=== PATIENT | female | born 1945 | race Caucasian/White ===

== ENCOUNTER → 2021-02-05 11:07 | Outpatient (BNVA) | payer MEDICARE, OTHER, SELFPAY | PROVIDERS: PCP Neuromusculoskeletal Medicine & OMM; Referring Provider Neuromusculoskeletal Medicine & OMM; Visit Provider Internal Medicine Cardiovascular Disease | DX: R00.2 Palpitations (principal); I10 Essential (primary) hypertension | CPT/HCPCS: 99203 ==

== ENCOUNTER 2022-02-03 08:08 | Outpatient (CLI) | payer MEDICARE, OTHER, SELFPAY ==
--- NOTE | 2022-02-03 08:00 | RT.EKG_ITS ---
APPROVED REPORT Exam: Resting ECG Reason for Exam: palpitations Patient Location: O HR:61 bpm ECG Measurements Heart Rate 61 AXIS DC 118 P -12 QRSd 82 QRS 43 QT 408 T 26 QTc 411 Conclusion Sinus rhythm...normal P axis, V-rate 50- 99 Normal Electrocardiogram
== END 2022-02-03 08:09 | disposition home or self-care (01) ==
LOC: DI.CARD 08:08
PROVIDERS: PCP Neuromusculoskeletal Medicine & OMM; Visit Provider Internal Medicine Cardiovascular Disease
DX: R00.2 Palpitations (principal); I48.0 Paroxysmal atrial fibrillation
CPT/HCPCS: 93010

== ENCOUNTER → 2022-02-03 10:48 | Outpatient (BNVA) | payer MEDICARE, OTHER, SELFPAY | PROVIDERS: PCP Neuromusculoskeletal Medicine & OMM; Referring Provider Neuromusculoskeletal Medicine & OMM; Visit Provider Internal Medicine Cardiovascular Disease | DX: R00.2 Palpitations (principal); I48.0 Paroxysmal atrial fibrillation; I10 Essential (primary) hypertension | CPT/HCPCS: 93005; 99213 ==

== ENCOUNTER → 2023-02-02 10:47 | Outpatient (BNVA) | payer MEDICARE, SELFPAY | PROVIDERS: PCP Neuromusculoskeletal Medicine & OMM; Visit Provider Internal Medicine Cardiovascular Disease | DX: R00.2 Palpitations (principal); I10 Essential (primary) hypertension | CPT/HCPCS: 99213 ==

== ENCOUNTER 2023-11-10 08:19 | Outpatient (CLI) | payer MEDICARE, SELFPAY ==
--- NOTE | 2023-11-10 08:15 | RT.EKG_ITS ---
APPROVED REPORT Exam: Resting ECG Reason for Exam: palpitations Patient Location: O HR:61 bpm ECG Measurements Heart Rate 61 AXIS DE 138 P 28 QRSd 89 QRS 27 QT 398 T 24 QTc 401 Conclusion Sinus rhythm...normal P axis, V-rate 50- 99 Probable left atrial enlargement...P >50mS, <-0.10mV V1 Low voltage
== END 2023-11-10 08:20 | disposition home or self-care (01) ==
LOC: DI.CARD 08:20
PROVIDERS: PCP Neuromusculoskeletal Medicine & OMM; Visit Provider Internal Medicine Cardiovascular Disease
DX: R00.2 Palpitations (principal); I51.7 Cardiomegaly; I10 Essential (primary) hypertension
CPT/HCPCS: 93010

== ENCOUNTER → 2023-11-10 08:50 | Outpatient (BNVA) | payer MEDICARE, SELFPAY | PROVIDERS: Visit Provider Internal Medicine Cardiovascular Disease | DX: I10 Essential (primary) hypertension (principal); R00.2 Palpitations | CPT/HCPCS: 93005; 99213 ==

== ENCOUNTER 2023-11-11 15:50 | Outpatient (REF) | payer MEDICARE, SELFPAY ==
--- NOTE | 2023-11-11 15:27 | ENDOMET_PTH ---
PATIENT: Ivy Edouard LOC: [facility] U#:[id number] AGE/SX: 78/F ROOM: RE11/11/[address]: Myriam Craven MD : [id number] BED: DIS: 11/11/2023 SPEC #: [id number] RECD: 11/11/23 17:41 STATUS: PRINCESS REQ #: [id number] [place]: 11/11/23 15:[address]: Myriam Craven DEPT: Surgical Specimen RECD BY: Naheed Samaniego ENTERED: 11/11/23 17:41 SP TYPE: Endomet OTHR DR: Unknown,Unknown Tissues: 1 - ENDOMETRIUM BX/CURRETTE Procedures: GROSS AND MICRO LEVEL 4 Comments: [id number]
== END 2023-11-11 15:51 | disposition home or self-care (01) ==
LOC: LBN 15:50
PROVIDERS: Visit Provider Obstetrics & Gynecology
DX: R93.89 Abnormal findings on diagnostic imaging of other specified body structures (principal)
CPT/HCPCS: 88305

== ENCOUNTER → 2024-02-22 13:28 | Outpatient (BNVA) | payer MEDICARE, SELFPAY | PROVIDERS: PCP Family Medicine; Visit Provider Internal Medicine Cardiovascular Disease | DX: R00.2 Palpitations (principal); I10 Essential (primary) hypertension | CPT/HCPCS: 99213 ==

== ENCOUNTER → 2024-08-22 13:27 | Outpatient (BNVA) | payer MEDICARE, OTHER, SELFPAY | PROVIDERS: PCP Family Medicine; Referring Provider Family Medicine; Visit Provider Registered Nurse | DX: R00.2 Palpitations (principal); I10 Essential (primary) hypertension | CPT/HCPCS: 99214 ==

== ENCOUNTER → 2025-02-20 13:31 | Outpatient (BNVA) | payer MEDICARE, OTHER, SELFPAY | PROVIDERS: PCP Family Medicine; Referring Provider Family Medicine; Visit Provider Registered Nurse | DX: R00.2 Palpitations (principal); I10 Essential (primary) hypertension | CPT/HCPCS: 99214 ==

== ENCOUNTER → 2025-02-27 02:30 | Outpatient (CLI) | payer MEDICARE, SELFPAY ==
--- NOTE | 2025-02-27 14:30 | DI.US_ITS ---
APPROVED REPORT EXAM: Comprehensive 2D, Doppler, and color-flow Echocardiogram Patient Location: Out-Patient Captain'S Assistant: Linda Bang RDCS (AE) Indications: Palpitations, Mitral regurgitation, Dyspnea on exertion Other Information Study Quality: Good Conclusion Normal left ventricular wall thickness and chamber size. Ejection fraction is 60 to 65%. Wall motion is normal Normal right ventricular size and function Both atria are normal in size Mild mitral annular calcification. Mild mitral regurgitation Normal estimated right ventricular systolic pressure 28 mmHg Wall motion Left Ventricle The left ventricle is normal size. The left ventricular systolic function is normal. The left ventricular ejection fraction is within the normal range. There is normal left ventricular wall thickness. There is normal LV segmental wall motion. There is no ventricular septal defect visualized. LVEF is 60-65%. Right Ventricle The right ventricle is normal size. The right ventricular systolic function is normal. Atria The left atrium size is normal. The right atrium size is normal. The interatrial septum is intact with no evidence for an atrial septal defect. Aortic Valve The aortic valve is normal in structure. Aortic valve is trileaflet. There is no aortic valvular stenosis. No aortic regurgitation is present. Mitral Valve Mild mitral annular calcification. No evidence of mitral valve stenosis. Mild mitral regurgitation. Tricuspid Valve The tricuspid valve is normal in structure. There is no tricuspid valve stenosis. Trace tricuspid regurgitation. The RVSP is 27.6 mmHg. Pulmonic Valve The pulmonary valve is normal in structure. There is no pulmonic valvular stenosis. Trace pulmonic regurgitation. Great Vessels The aortic root is normal in size. The ascending aorta is normal in size. Aortic arch is not well visualized. IVC is normal in size and collapses >50% with inspiration. Pericardium There is no pericardial effusion. 2D Dimensions IVSD d PLAX 0.90 cm F: 0.6-1.0 Ao Root d 2.40 cm F: 2.7 - 3.3 LVPW d PLAX 0.90 cm F: 0.6 - 1.0 Ao Asc Diam d 2.52 cm F: 2.3 - 3.1 LVID d PLAX 4.42 cm F: 3.8 - 5.2 Left Atrium 0.00 cm F: 2.7 - 3.8 LVDs 3.02 cm F: 2.2 - 3.5 LV EF Teichholz 59.9 % FS 31.72 % LV EDV (Teich) 88.4 mL LV ESV (Teich) 35.4 mL M-Mode TAPSE 2.03 cm (M/F) >1.7 Auto EF LV EDV A4C 55.8 mL LV EDV A2C 64.4 mL LV EDV BP 60.3 mL LV ESV A4C 19.7 mL LV ESV A2C 22.6 mL LV ESV BP 20.7 mL LVEF(%) A4C 64.7 % LVEF(%) A2C 65.0 % LVEF(%) BP 65.6 % LV SV A4C 36.1 ml LV SV A2C 41.9 ml LV SV BP 39.6 ml LV CO A4C 2.4 L/min LV CO A2C 2.7 L/min LV CO BP 2.6 L/min HR A4C 67.64 BPM HR A2C 63.92 BPM LV EDV Index (BP) LA Volume LA Length A4C 5.5 cm LA Length A2C 6.0 cm LA Area A4C s 18.09 cm2 LA Area A2C s 19.18 cm2 LA Vol A4C A-L 50.63 mL LA Vol A2C A-L 51.87 mL LA Vol Biplane A-L 53.7 mL LA Vol/BSA A4C A-L LA Vol/BSA A2C A-L LA Vol/BSA BP A-L 34.9 mL/m2 LA Vol A4C MOD 47.3 mL LA Vol A2C MOD 47.8 mL LA Vol BP MOD 49.7 mL RA Volume RA Area A4C 14.1 cm2 RA ESV A4C (A-L) 38.7mL RA Vol/BSA A4C A-L RA Length A4C 4.4 cm RA ESV A4C (MOD) 36.3mL LV Diastology MV E' medial 0.072 (>0.07 m/s) MV E Vmax 1.07 (0.4-1.3 m/s) MV E/E' MED 14.83 (<14) MV A Vmax 0.90 (0.4-1.3 m/s) MV E' lateral 0.082 (>0.1 m/s) E/A Ratio 1.2 MV E/E' LAT 13.05 (<14) MV E' Average 0.077 m/s MV E/E'(average) 13.88 Aortic Valve AoV Vmax 1.59 m/s LVOT Vmax 1.41 m/s AoV Peak Grad 10.1 mmHg LVOT Peak Grad 8.0 mmHg AoV Area (Vmax) 2.51 cm2 LVOT VTI 0.350 m AoV VTI 0.387 m LVOT Mean Grad 4.6 mmHg AoV Mean Everardo. 1.07 m/s LVOT SV 99.01 mL AoV Mean Grad 5.3 mmHg LVOT Diam s 1.85 cm AoV Area (VTI) 2.56 cm2 AV Regurg Peak Gr. 10.12 mmHg Velocity Ratio 0.89 Mitral Valve MV DT 256 (160-240 msec) MV Vmax TIPS 1.30 m/s MV Mean Grad 2.3 (<2mmHg) MV VTI 0.397 m Pulmonary Valve PV Vmax 0.68 (0.5-1.5 m/s) RVOT Vmax 0.63 m/s PV Peak Grad 1.9 mmHg RVOT Peak Gr. 1.6 mmHg PV Mean Everardo 0.52 m/s RVOT VTI 0.159 m PV Mean Grad 1.2 mmHg RVOT Mean Gr. 1.1 mmHg Tricuspid Valve RA Pressure 3.00 mmHg TR Vmax 2.48 m/s TV S' 0.14 m/s TR Peak Grad 24.5 mmHg RVSP (TR) 27.6 mmHg
== END ==
PROVIDERS: PCP Family Medicine; Visit Provider Registered Nurse
DX: R00.2 Palpitations (principal)
CPT/HCPCS: 93306

== ENCOUNTER 2025-03-02 10:31 | Outpatient (CLI) | payer MEDICARE, SELFPAY | END 2025-03-02 10:32 | disposition home or self-care (01) | PROVIDERS: PCP Family Medicine; Visit Provider Registered Nurse | DX: R00.2 Palpitations (principal) | CPT/HCPCS: 93270 ==

== ENCOUNTER 2025-04-06 08:30 | Outpatient (CLI) | payer MEDICARE, SELFPAY ==
--- NOTE | 2025-04-06 09:19 | W.CARDEVENT ---
Date of service: 04/06/25 Time of Service: 09:19 Cardiac Event Recorder Referring Provider:: Ivanna Raza Indications:: Palpitations Cardiac Event Note: This is a cardiac event monitor. Patient was monitored for 30 days Rhythm throughout was sinus. Average heart rate was 67. Minimum was 56, maximum 150 There were rare ventricular ectopic beats. There was 1 run of nonsustained ventricular tachycardia, 7 beats in duration, during sleep. Atrial premature beats were rare. There were very rare self-limited atrial runs. Some of these were symptomatic There was no atrial fibrillation, no high-grade AV block, no pauses greater than 3 seconds
== END 2025-04-06 08:31 | disposition home or self-care (01) ==
LOC: CARDOPNVT 08:30
PROVIDERS: PCP Family Medicine; Visit Provider Internal Medicine Cardiovascular Disease
DX: R00.2 Palpitations (principal); I49.3 Ventricular premature depolarization
CPT/HCPCS: 93272

== ENCOUNTER → 2025-04-17 14:16 | Outpatient (BNVA) | payer MEDICARE, SELFPAY | PROVIDERS: PCP Family Medicine; Referring Provider Family Medicine; Visit Provider Registered Nurse | DX: R00.2 Palpitations (principal); I10 Essential (primary) hypertension; E78.5 Hyperlipidemia, unspecified | CPT/HCPCS: 99214 ==